=== PATIENT | male | born 1960 | race Caucasian/White ===

== ENCOUNTER 2022-09-04 11:12 | Emergency (ER) | payer BC, OTHER ==
[2022-09-04] MEDS ORDERED: Iopamidol 755 MG/ML 50 ML Bottle IVPUSH ONE (11:20)
[2022-09-04] MEDS ORDERED: Sodium Chloride 0.9% 10 ML Syringe FLUSH PRN (11:20)
[2022-09-04] MEDS ORDERED: Iopamidol 755 Mg/ML 100 ML Bottle IVPUSH ONE (11:20)
[2022-09-04] MEDS ORDERED: Lactated Ringers 1,000 ML IV ONE (11:27)
[2022-09-04] MEDS ORDERED: fentaNYL 100 MCG/2 ML SDV IVPUSH ONE (11:28)
[2022-09-04] MEDS ORDERED: Ketorolac 30 MG/ML SDV IVPUSH ONE (12:44)
[2022-09-04] MEDS ORDERED: Morphine 4 MG/ML Syringe IVPUSH ONE (14:29)
== END 2022-09-04 17:13 ==
LOC: JD.ED 11:12
DX: R07.81 Pleurodynia (principal); Z88.0 Allergy status to penicillin; Z91.041 Radiographic dye allergy status; Z79.82 Long term (current) use of aspirin; W11.XXXA Fall on and from ladder, initial encounter
CPT/HCPCS: 36415; 70450; 71250; 72125; 72128; 72131; 74176; 80053; 82553; 83605; 83690; 84484; 85025; 85610; 86850; 86900; 86901; 93005; 96361; 96374; 96375; 99285; J1885; J2270; J3010; J7120; 93010; 99284